=== PATIENT | male | born 2005 | race Caucasian/White ===

== ENCOUNTER → 2025-03-11 | Outpatient (CLI) | payer SELFPAY ==
[2025-03-11 18:47] LABS: Hepatitis C Antibody Nonreactive (Nonreactive)
== END | disposition home or self-care (01) ==
LOC: MTLAB 16:08
PROVIDERS: PCP Physician Assistant; Referring Provider Physician Assistant Medical; Visit Provider Physician Assistant Medical
DX: L43.8 Other lichen planus (principal)
CPT/HCPCS: 36415; 86803